=== PATIENT | male | born 1960 | race Caucasian/White ===

== ENCOUNTER → 2016-09-06 | Outpatient (CLI) | payer MEDICARE ==
[~2016-09-06] MED LIST: ASPIR-LOW81 MG PO; CLARITIN10 MG PO; COMBIVENT0.074 GM/I INH; DAILY VITE1 EACH PO; DAKIN'S SOLUTI500 ML EXT; DILAUDID2 MG PO; DOC-Q-LACE100 MG PO; FLEXERIL 10 MG10 MG PO; FLONASE 0.05% N16 GM; FOLIC ACID 1 MG1 MG PO; GABAPENTIN PO; GLUCOPHAGE 500500 MG PO; HABITROL 21 MG P1 EA TD; HUMIBID LA TAB600 MG PO; HYDROCORT-PRAMO30 GM TOP; HYDROXYZINE HCL50 MG PO; LEVEMIR FL100 UNIT/1 SQ; LEVOCETIRIZINE D5 MG PO; METHOTREXATE T2.5 MG PO; NEURONTIN 300300 MG PO; NOVOLOG 10100 UNITS/ SQ; OMEPRAZOLE20 MG PO; OXYGEN INH; PERCOCET 10-321 EACH PO; PERCOCET 7.5-31 EACH PO; PRAVASTATIN SOD40 MG PO; ROBITUSSIN DM473 ML PO; ROCEPHIN 11 G/50 ML IV; SEROQUEL200 MG PO; TOPROL XL 25 MG25 MG PO; TRAZODONE HCL100 MG PO; TRINTELLIX PO; TYLENOL 325MG325 MG PO; VANCOMYCIN HCL1 GM IV
[2016-09-06 15:45] LABS: HEMOGLOBIN 15.5 gm/dl (14.0-17.5); RED BLOOD COUNT 4.8 M/UL (4.20-5.50); WHITE BLOOD COUNT 10.8 K/UL (4.5-11.0)
[2016-09-06 16:00] LABS: BUN/CREATININE RATIO 19 (0-10)
== END ==
LOC: LAB 14:57
PROVIDERS: Family Medicine
DX: E11.9 Type 2 diabetes mellitus without complications (principal); E53.8 Deficiency of other specified B group vitamins; E55.9 Vitamin D deficiency, unspecified; E78.5 Hyperlipidemia, unspecified; I10 Essential (primary) hypertension; M06.9 Rheumatoid arthritis, unspecified
CPT/HCPCS: 36415; 80048; 80061; 80076; 82607; 83036; 84443; 85025

== ENCOUNTER → 2020-07-15 | Outpatient (CLI) | payer MEDICARE, SELFPAY ==
[~2020-07-15] MED LIST changes: +BIOTIN1 M1 PO; +CLARITIN10 M2 PO; +ELIQUIS 2.5 MG2.5 MG PO; +ELIQUIS2.5 MG PO; +ENBREL50 MG/1 M1 SQ; +HUMALOG100 UNIT/3 SC; +LINZESS145 MCG PO; +LOPRESSOR 25 MG25 MG PO; +NORCO 5-325 TA1 EACH PO; +NOVOLOG MI100 UNIT/1 SC; +SAW PALMETTO C1 EACH PO; +SEROQUEL XR200 MG PO; -SEROQUEL200 MG PO; +SINGULAIR10 MG PO; -TOPROL XL 25 MG25 MG PO; +TORADOL 10 MG T10 MG PO; +VITAMIN B-12100 MCG PO; +ZOFRAN4 MG PO
== END ==
LOC: MRI 08:04
DX: M75.101 Unspecified rotator cuff tear or rupture of right shoulder, not specified as traumatic (principal); M77.8 Other enthesopathies, not elsewhere classified; M89.9 Disorder of bone, unspecified; M19.011 Primary osteoarthritis, right shoulder
CPT/HCPCS: 73221

== ENCOUNTER → 2021-02-25 | Outpatient (CLI) | payer MEDICARE | LOC: LAB 08:18 | DX: R79.89 Other specified abnormal findings of blood chemistry (principal); S83.91XA Sprain of unspecified site of right knee, initial encounter; M75.121 Complete rotator cuff tear or rupture of right shoulder, not specified as traumatic | CPT/HCPCS: 73030; 73564; 82565; 84520; 85610; 85730 ==

== ENCOUNTER → 2021-03-02 | Outpatient (CLI) | payer MEDICARE ==
[2021-03-02 12:31] LABS: MONONUCLEAR CELLS 77 %; POLYMORPHONUCLEAR 23 %; RBC (AUTOMATED) 2900 10^6; WBC (AUTOMATED) 542 10^3
== END ==
LOC: RAD 01-25 10:00 → MRI 01-25 10:00 → RAD 08:01
PROVIDERS: Orthopaedic Surgery
DX: M75.121 Complete rotator cuff tear or rupture of right shoulder, not specified as traumatic (principal)
CPT/HCPCS: 73040; 73222; 73564; 87070; 87205; 89051; 89060; A9577; Q9962

== ENCOUNTER → 2021-10-27 | Outpatient (CLI) | payer MEDICARE | LOC: KOH-I 14:43 | DX: F17.210 Nicotine dependence, cigarettes, uncomplicated (principal); R91.8 Other nonspecific abnormal finding of lung field | CPT/HCPCS: 71271 ==